=== PATIENT | female | born 1990 | race African-American/Black ===

== ENCOUNTER 2022-11-28 13:00 | Inpatient (IN) | payer MEDICAID, OTHER ==
[~2022-11-28] VITALS: Ht 170.2 cm; Wt 79.4 kg
[2022-11-28] MEDS ORDERED: LEVETIRACETAM 500MG PREMIX 100 ML IV ONE (13:45)
[2022-11-28 15:18] LABS: BASOPHILS % 0.3 % (0.0-2.0); EOSINOPHILS % 0.6 % (0.0-5.0); HEMATOCRIT. 27.6 % (36.0-48.0); HEMOGLOBIN. 9.3 g/dL (12.0-16.0); LYMPHOCYTES % 10.2 % (20.0-50.0); MEAN CORPUSCULAR HEMOGLOBIN 29.3 pg (28.0-32.0); MEAN CORPUSCULAR VOLUME 86.8 fL (81.0-99.0); MEAN PLATELET VOLUME 7.3 fl (7.4-10.4); MONOCYTES % 8.9 % (2.0-8.0); PLATELET 404 x1000/uL (130-400); RED BLOOD CELL COUNT 3.18 mill/uL (4.2-5.4); RED CELL DISTRIBUTION WIDTH 16.3 % (11.6-14.6)
[2022-11-28 15:29] LABS: CHLORIDE 106 mEq/L (98-107)
[2022-11-28 15:38] LABS: ETHANOL BLOOD < 10 mg/dL
[2022-11-28 15:40] LABS: HCG SCREEN NEGATIVE
[2022-11-28] MEDS ORDERED: ASPIRIN 325MG EC TABLET PO ONE (16:00)
[2022-11-28] MEDS ORDERED: ASPIRIN 325MG EC TABLET PO NR (19:30)
[2022-11-28] MEDS ORDERED: LEVETIRACETAM 500MG PREMIX 100 ML IV NR (19:30)
[2022-11-28] MEDS ORDERED: ACETAMINOPHEN 325MG TABLET PO PRN (20:15)
[2022-11-28] MEDS ORDERED: ONDANSETRON HCL 4MG/2ML INJ IV PRN (20:15)
[2022-11-28] MEDS ORDERED: LEVETIRACETAM 500 MG in SODIUM CHLORIDE 0.9% 100 ML IV SCH (20:15)
[2022-11-28] MEDS ORDERED: DIPHENHYDRAMINE 50MG/ML VIAL IV PRN (20:15)
[2022-11-28] MEDS ORDERED: CLONIDINE 0.1MG TABLET PO PRN (20:15)
[2022-11-28] MEDS ORDERED: IPRATROPIUM/ALBUTEROL 0.5-3(2.5)MG/3ML NEB HHN PRN (20:15)
[2022-11-28] MEDS ORDERED: LORAZEPAM 2MG/ML CPJ IV PRN (20:15)
[2022-11-29] MEDS: SODIUM CHLORIDE 0.9% 1,000 ML IV SCH ×2 (00:44→12:55)
[2022-11-29 04:00] VITALS: BP 122/80
[2022-11-29] MEDS ORDERED: LEVETIRACETAM 500MG PREMIX 100 ML IV SCH (09:00)
[2022-11-29] MEDS: LEVETIRACETAM 500MG PREMIX 100 ML IV SCH ×2 (10:00→22:00)
[2022-11-29 12:00] VITALS: BP 130/71
[2022-11-29] MEDS: SERTRALINE HCL 25MG TABLET PO SCH (13:30)
[2022-11-29] MEDS: RISPERIDONE 0.25MG TABLET PO SCH ×2 (13:30→17:47)
[2022-11-29] MEDS ORDERED: ARIP20TA2 MT (14:19)
[2022-11-29 15:47] LABS: CLARITY URINE CLEAR (CLEAR); COLOR URINE YELLOW (YELLOW); KETONES URINE NEGATIVE (NEGATIVE); LEUKOCYTE ESTERASE URINE 2+ (NEGATIVE); NITRITE URINE NEGATIVE (NEGATIVE); OCCULT BLOOD URINE NEGATIVE (NEGATIVE); PROTEIN URINE NEGATIVE (NEGATIVE); SPECIFIC GRAVITY URINE 1.015 (1.005-1.030)
[2022-11-29 15:53] LABS: UCG SCREEN NEGATIVE
[2022-11-29 16:00] VITALS: BP 135/89
[2022-11-29 16:40] LABS: *BARBITURATES SCREEN URINE NEGATIVE (NEGATIVE); METHADONE URINE SCREEN NEGATIVE (NEGATIVE); OPIATES URINE SCREEN NEGATIVE (NEGATIVE); PHENCYCLIDINE URINE SCREEN NEGATIVE (NEGATIVE)
[2022-11-29 16:52] LABS: *AMPHETAMINES SCREEN URINE PRESUMTIVE POSITIVE (NEGATIVE); *BENZODIAZEPINES SCREEN URINE PRESUMTIVE POSITIVE (NEGATIVE); *COCAINE SCREEN URINE PRESUMTIVE POSITIVE (NEGATIVE); CANNABINOID URINE SCREEN PRESUMTIVE POSITIVE (NEGATIVE)
[2022-11-29 16:53] LABS: BASOPHILS % 0.3 % (0.0-2.0); EOSINOPHILS % 1.2 % (0.0-5.0); HEMATOCRIT. 28.3 % (36.0-48.0); HEMOGLOBIN. 9.4 g/dL (12.0-16.0); LYMPHOCYTES % 11.6 % (20.0-50.0); MEAN CORPUSCULAR HEMOGLOBIN 28.5 pg (28.0-32.0); MEAN CORPUSCULAR VOLUME 85.7 fL (81.0-99.0); MEAN PLATELET VOLUME 7.5 fl (7.4-10.4); MONOCYTES % 8.6 % (2.0-8.0); NEUTROPHILS % 78.3 % (40.0-76.0); PLATELET 411 x1000/uL (130-400); RED CELL DISTRIBUTION WIDTH 16.2 % (11.6-14.6)
[2022-11-29 16:55] LABS: CHLORIDE 103 mEq/L (98-107)
[2022-11-29 17:07] LABS: TOTAL IRON BINDING CAPACITY 250 ug/dL (250-450)
[2022-11-29 17:29] LABS: FOLIC ACID (FOLATE) SERUM 12.8 ng/mL (>5.38)
[2022-11-29 20:00] VITALS: BP 109/59
[2022-11-29 23:57] LABS: CREATINE KINASE 31 IU/L (26-192)
[2022-11-30] VITALS: BP 113/61
[2022-11-30 04:00] VITALS: BP 116/63
[2022-11-30 08:00] VITALS: BP 124/77
[2022-11-30] MEDS: SERTRALINE HCL 25MG TABLET PO SCH (08:48)
[2022-11-30] MEDS: LEVETIRACETAM 500MG PREMIX 100 ML IV SCH ×2 (08:48→21:08)
[2022-11-30] MEDS: RISPERIDONE 0.25MG TABLET PO SCH (08:48)
[2022-11-30 12:00] VITALS: BP 116/84
[2022-11-30 16:00] VITALS: BP 118/71
[2022-11-30] MEDS: SODIUM CHLORIDE 0.9% 1,000 ML IV SCH ×2 (16:59→21:08)
[2022-11-30 20:00] VITALS: BP 118/79
[2022-12-01] VITALS: BP 120/78
[2022-12-01 04:00] VITALS: BP 123/83
[2022-12-01 08:00] VITALS: BP 101/44
[2022-12-01] MEDS: LEVETIRACETAM 500MG PREMIX 100 ML IV SCH (08:45)
[2022-12-01] MEDS: SERTRALINE HCL 25MG TABLET PO SCH (08:47)
[2022-12-01] MEDS ORDERED: ARIPIPRAZOLE 5MG TABLET PO SCH (09:00)
[2022-12-01 12:00] VITALS: BP 110/56
[2022-12-01] MEDS ORDERED: SERT25TA74 PO (12:20)
[2022-12-01 13:16] VITALS: BP 110/56
== END 2022-12-01 13:45 | disposition home or self-care (01) | DRG 53 ==
LOC: ER 13:18 → EDBD 13:18 → MICUSO 17:22 → EDBD 17:22 → 7WST 11-29 04:05
PROVIDERS: ADMIT Internal Medicine; ATTEND Internal Medicine
PROC: 4A00X4Z Measurement of Central Nervous Electrical Activity, External Approach (ICD-10-PCS; principal; 2022-12-01)
DX: R56.9 Unspecified convulsions (principal); G93.40 Encephalopathy, unspecified; I27.20 Pulmonary hypertension, unspecified; F14.10 Cocaine abuse, uncomplicated; D72.821 Monocytosis (symptomatic); D50.9 Iron deficiency anemia, unspecified; F39 Unspecified mood [affective] disorder
CPT/HCPCS: 36415; 70551; 71045; 80053; 80305; 80320; 81003; 81025; 82140; 82550; 82607; 82728; 82746; 82962; 83540; 83550; 84484; 84703; 85025; 93005; 93306; 93970; 95816; 99285; J1953; G0480